=== PATIENT | female | born 2000 | race Asian ===

== ENCOUNTER → 2022-04-12 15:47 | Outpatient (CLI) | payer SELFPAY | PROVIDERS: PCP Physician Assistant; Visit Provider Physician Assistant | DX: R31.9 Hematuria, unspecified (principal) | CPT/HCPCS: 87077; 87086; 87186 ==

== ENCOUNTER → 2022-04-21 09:20 | Outpatient (CLI) | payer SELFPAY ==
[2022-04-21 20:04] LABS: Appearance Urine UA CLEAR; Bilirubin Urine UA NEGATIVE (NEGATIVE); Color Urine UA YELLOW; Glucose Urine UA NEGATIVE (Negative); Ketones Urine UA NEGATIVE (NEGATIVE); Leukocyte Esterase Urine UA NEGATIVE (NEGATIVE); Nitrite Urine UA NEGATIVE (Negative); Occult Blood Urine UA NEGATIVE (Negative); Protein Urine UA NEGATIVE (Negative); Urobilinogen Urine UA 0.2 E.U./dL (0.2)
[2022-04-21 20:33] LABS: pH Urine UA 6.5 (4.5-8.0)
[2022-04-21 20:38] LABS: Amorphous Sediment Urine 1+; Bacteria Urine Occasional (0-1); Culture Indicated Urine Cult Not Indicated; RBC Urine None Seen (0-5/HPF); Squamous Epithelial Cell Urine 5-10 /HPF (0-5/HPF); WBC Urine None Seen (0-5/HPF)
== END ==
PROVIDERS: PCP Physician Assistant; Visit Provider Physician Assistant
DX: R31.9 Hematuria, unspecified (principal)
CPT/HCPCS: 81001

== ENCOUNTER → 2024-09-28 12:16 | Outpatient (CLI) | payer OTHER, SELFPAY ==
[2024-09-28 13:27] LABS: Influenza A - CEPHEID Flu A POSITIVE (NEGATIVE); Influenza B - CEPHEID Flu B NEGATIVE (NEGATIVE); Respiratory Syncytial Virus Negative (Negative)
[2024-09-28 13:28] LABS: COVID-19 CEPHEID 4-PLEX PCR Negative (Negative)
== END ==
PROVIDERS: PCP Physician Assistant; Visit Provider Nurse Practitioner Family
DX: R05.9 Cough, unspecified (principal); J02.9 Acute pharyngitis, unspecified; R11.10 Vomiting, unspecified
CPT/HCPCS: 0241U; 87070

== ENCOUNTER → 2024-09-28 13:25 | Outpatient (CLI) | payer OTHER, SELFPAY ==
--- NOTE | 2024-09-28 13:27 | DI.RAD.S_ITS ---
PROCEDURE: XR CHEST 2V INDICATIONS: Cough TECHNIQUE: 2 views of the chest were acquired. COMPARISON: None. FINDINGS: Surgical changes and devices: None. Lungs and pleura: Lungs are clear. No pleural effusions or pneumothorax. Mediastinum: Mediastinal contours are normal. Heart size is normal. Bones and chest wall: No suspicious bony abnormalities. Soft tissues appear unremarkable. IMPRESSION: No acute cardiopulmonary abnormality is seen. Dictated by: Brandon Alaniz M.D. on 09/28/2024 at 14:16 Approved by: Brandon Alaniz M.D. on 09/28/2024 at 14:16
== END ==
LOC: RAD 13:27
PROVIDERS: PCP Physician Assistant; Referring Provider Nurse Practitioner Family
DX: R05.9 Cough, unspecified (principal)
CPT/HCPCS: 0241U; 71046; 87070